=== PATIENT | male | born 1940 ===

== ENCOUNTER 2017-07-30 07:00 | Outpatient (CLI) | payer MEDICARE, OTHER ==
--- NOTE | 2017-07-30 12:22 | PET ---
PET CT: HISTORY: 76-year-old male with malignant neoplasm of the head, face, and neck. 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 Th e carcinoma was present within the deep dermis and involved the margins. 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 Exam requested for initial staging. TECHNIQUE: PET scanning with CT attenuation correction was performed from the vertex through the proximal thighs following the intravenous administration of 12.8 mCi [id number] in the right wrist. Imaging was perfor med after an uptake interval of 55 minutes. COMPARISON: None. CORRELATION: None. FINDINGS: There is mildly increased uptake in the posterior parietal scalp consistent with recent biopsy. No hypermetabolic lymph nodes are seen in the neck, axilla, chest, abdomen, or pelvis. No hypermetabolic pulmonary nodules, liver, adrenal, or skeletal lesions are seen. There is physiologic activity in the brain, GI and tracts. There is a 5.0 mm peripheral nodule in the right lower lobe without abnormal FDG localization. The CT scan used for attenuation correction also demonstrates a small hiatal hernia, nonobstructing 5 mm left renal calculus, and sigmoid diverticulosis. IMPRESSION: 1. No definite evidence of metastatic disease. 2. 5.0 mm right lower lobe lung nodule should be monitored with a follow-up CT scan of the chest in 3 months. POS: MICHEAL
== END 2017-07-30 07:01 | disposition home or self-care (01) ==
LOC: PET 07:00
PROVIDERS: ATTEND Dermatology
DX: C76.0 Malignant neoplasm of head, face and neck (principal); R91.1 Solitary pulmonary nodule
CPT/HCPCS: 78815; A9552